=== PATIENT | female | born 1980 | race Hispanic/Latino ===

== ENCOUNTER 2019-01-12 19:07 | Emergency (ER) | payer BC ==
[~2019-01-12] VITALS: Ht 147.3 cm; Wt 70.0 kg
[~2019-01-12 19:07] MED LIST: CIPRO500 MG OR; CONCEPT OB PO; FERROUS SULF325 M1 PO; FLUZONE SPLT1 M1 IM; IBUPROFEN600 MG PO; LORTAB 5 OR; LORTAB5 OR; NO HOME MEDS; PRENATA5; PRENATABS RX PO; PRENATAL 1 OR; TRIAMCINOLON0.11 EX; TUBERSOL5 MG/0.1 M ID; ULTRAM50 MG OR
[2019-01-12 21:30] VITALS: BP 135/86
== END 2019-01-12 21:47 | disposition home or self-care (01) | DRG 605 ==
LOC: ED 19:07
PROC: 2W3HX1Z Immobilization of Left Thumb using Splint (ICD-10-PCS; principal; 2019-01-12)
DX: S60.012A Contusion of left thumb without damage to nail, initial encounter (principal); W23.0XXA Caught, crushed, jammed, or pinched between moving objects, initial encounter

== ENCOUNTER 2022-04-13 18:26 | Emergency (ER) | payer OTHER, BC ==
[~2022-04-13] VITALS: Ht 147.3 cm; Wt 66.0 kg
[2022-04-13 21:15] VITALS: BP 109/72
[2022-04-13 21:30] VITALS: BP 114/68
[2022-04-13] MEDS ORDERED: VOLTAREN75 MG PO (21:32)
[2022-04-13 21:35] VITALS: BP 114/68
== END 2022-04-13 21:35 | disposition home or self-care (01) | DRG 552 ==
LOC: ED 18:26
DX: S16.1XXA Strain of muscle, fascia and tendon at neck level, initial encounter (principal); S20.213A Contusion of bilateral front wall of thorax, initial encounter; S29.012A Strain of muscle and tendon of back wall of thorax, initial encounter; V47.5XXA Car driver injured in collision with fixed or stationary object in traffic accident, initial encounter

== ENCOUNTER 2022-08-23 18:24 | Emergency (ER) | payer BC ==
[~2022-08-23] VITALS: Ht 152.4 cm; Wt 63.0 kg
[~2022-08-23 18:24] MED LIST changes: +VOLTAREN75 MG PO
[2022-08-23] MEDS ORDERED: NAPROXEN500 MG PO (20:34)
[2022-08-23 22:56] VITALS: BP 136/79
== END 2022-08-23 22:57 | disposition home or self-care (01) | DRG 563 ==
LOC: ED 18:24
PROC: 2W3SX1Z Immobilization of Right Foot using Splint (ICD-10-PCS; principal; 2022-08-23)
DX: S92.511A Displaced fracture of proximal phalanx of right lesser toe(s), initial encounter for closed fracture (principal); W06.XXXA Fall from bed, initial encounter; Y92.003 Bedroom of unspecified non-institutional (private) residence as the place of occurrence of the external cause

== ENCOUNTER 2024-08-06 18:48 | Emergency (ER) | payer SELFPAY ==
[~2024-08-06] VITALS: Ht 160 cm; Wt 59.0 kg
[~2024-08-06 18:48] MED LIST changes: +MELOXICAM7.5 MG PO; +NAPROXEN500 MG PO
[2024-08-06 19:38] VITALS: BP 148/90
[2024-08-06 19:44] LABS: URINE BILIRUBIN - DIPSTICK Negative (NEGATIVE); URINE BLOOD DIPSTICK Trace-intact (NEGATIVE); URINE GLUCOSE - DIPSTICK Negative (NEGATIVE); URINE KETONE Negative (NEGATIVE); URINE LEUK ESTERASE Negative (NEGATIVE); URINE NITRITE - DIPSTICK Negative (Negative); URINE PROTEIN - DIPSTICK Negative (NEG-TRACE); URINE SPECIFIC GRAVITY 1.025; URINE UROBILINOGEN - DIPSTICK 0.2 E.U./dL (0.2)
[2024-08-06 19:45] VITALS: BP 138/79
[2024-08-06 19:48] LABS: URINE COLOR Yellow
[2024-08-06 20:00] VITALS: BP 131/87
[2024-08-06] MEDS ORDERED: DICLOFENAC SODIUM 75 MG/TAB PO ONE (20:55)
[2024-08-06] MEDS ORDERED: VOLTAREN - GENE75 MG PO (20:55)
[2024-08-06] MEDS ORDERED: ACETAMINOPHEN 500 MG TAB PO ONE (20:55)
[2024-08-06 21:13] VITALS: BP 138/79
== END 2024-08-06 21:17 | disposition home or self-care (01) | DRG 103 ==
LOC: ED 18:48
PROVIDERS: Nurse Practitioner
DX: R51.9 Headache, unspecified (principal); H11.32 Conjunctival hemorrhage, left eye; W01.0XXA Fall on same level from slipping, tripping and stumbling without subsequent striking against object, initial encounter; Y92.512 Supermarket, store or market as the place of occurrence of the external cause